=== PATIENT | male | born 2000 | race African-American/Black ===

== ENCOUNTER 2024-12-18 07:07 | Emergency (ER) | payer MEDICARE, MEDICAID ==
[~2024-12-18] VITALS: Ht 175.3 cm; Wt 41.0 kg
[2024-12-18 07:15] VITALS: O2SAT 99
[2024-12-18 09:25] VITALS: BP 118/85; PULSE 79; RESP 20; TEMP 37.1; O2SAT 100
== END 2024-12-18 09:49 | disposition home or self-care (01) ==
LOC: ER 07:07
DX: S83.004A Unspecified dislocation of right patella, initial encounter (principal); X58.XXXA Exposure to other specified factors, initial encounter; Y93.89 Activity, other specified; Y92.89 Other specified places as the place of occurrence of the external cause; Y99.8 Other external cause status
CPT/HCPCS: 27560; 29505; 73562; 99283; 99284; A4606